=== PATIENT | female | born 1990 | race Caucasian/White ===

== ENCOUNTER 2022-11-07 03:10 | Emergency (ER) | payer MEDICARE, MEDICAID ==
[2022-11-07] MEDS ORDERED: Ketorolac 30 MG/ML SDV IVPUSH ONE (03:14)
[2022-11-07] MEDS ORDERED: Morphine 4 MG/ML Syringe IVPUSH ONE (04:27)
[2022-11-07] MEDS ORDERED: HYDROmorphone 1 MG/ML Syringe IVPUSH ONE (05:14)
== END 2022-11-07 06:10 | disposition home or self-care (01) ==
LOC: MW.ED 03:10
DX: S42.301A Unspecified fracture of shaft of humerus, right arm, initial encounter for closed fracture (principal); Z88.8 Allergy status to other drugs, medicaments and biological substances; W18.00XA Striking against unspecified object with subsequent fall, initial encounter
CPT/HCPCS: 70450; 70486; 73030; 96374; 96375; 99284; J1170; J1885; J2270